=== PATIENT | male | born 1980 | race African-American/Black ===

== ENCOUNTER 2021-02-09 23:37 | Emergency (ER) | payer MEDICAID, OTHER ==
[~2021-02-09] VITALS: Ht 188 cm; Wt 159.0 kg
[2021-02-10 00:27] LABS: CHLORIDE 108 mEq/L (98-107)
[2021-02-10 01:17] LABS: BASOPHILS % 1.2 % (0.0-2.0); EOSINOPHILS % 7.8 % (0.0-5.0); HEMATOCRIT. 31.1 % (42.0-52.0); HEMOGLOBIN. 9.5 g/dL (14.0-18.0); MEAN CORPUSCULAR HEMOGLOBIN 20.6 pg (28.0-32.0); MEAN CORPUSCULAR VOLUME 67.1 fL (80.0-94.0); MEAN PLATELET VOLUME 8.3 fl (7.4-10.4); MONOCYTES % 10.2 % (2.0-8.0); NEUTROPHILS % 61.8 % (40.0-76.0); PLATELET 56 x1000/uL (130-400); RED BLOOD CELL COUNT 4.64 mill/uL (4.7-6.1); RED CELL DISTRIBUTION WIDTH 20.2 % (11.6-14.6)
[2021-02-10 01:20] LABS: PLATELET ESTIMATE DECREASED
[2021-02-10 02:29] VITALS: BP 137/76
== END 2021-02-10 02:31 ==
LOC: ER 23:37
DX: Z02.89 Encounter for other administrative examinations (principal); G40.909 Epilepsy, unspecified, not intractable, without status epilepticus; I10 Essential (primary) hypertension
CPT/HCPCS: 36415; 80053; 85025; 99284

== ENCOUNTER 2021-04-18 14:27 | Emergency (ER) | payer MEDICAID ==
[~2021-04-18] VITALS: Ht 172.7 cm; Wt 105.0 kg
[2021-04-18] MEDS ORDERED: ACETAMINOPHEN 325MG TABLET PO STA (15:18)
[2021-04-18 15:25] VITALS: BP 98/58
[2021-04-18 15:55] LABS: BASOPHILS % 0.3 % (0.0-2.0); EOSINOPHILS % 1.5 % (0.0-5.0); HEMATOCRIT. 31.3 % (42.0-52.0); HEMOGLOBIN. 9.7 g/dL (14.0-18.0); MEAN CORPUSCULAR HEMOGLOBIN 20.7 pg (28.0-32.0); MEAN PLATELET VOLUME 8.5 fl (7.4-10.4); MONOCYTES % 12.7 % (2.0-8.0); NEUTROPHILS % 70.5 % (40.0-76.0); RED BLOOD CELL COUNT 4.67 mill/uL (4.7-6.1); RED CELL DISTRIBUTION WIDTH 21.3 % (11.6-14.6)
[2021-04-18 15:59] LABS: PLATELET 43 x1000/uL (130-400)
[2021-04-18 16:01] LABS: CHLORIDE 102 mEq/L (98-107)
[2021-04-18 16:05] LABS: ETHANOL BLOOD < 10 mg/dL
[2021-04-18 16:27] LABS: PLATELET ESTIMATE MARKEDLY DECREASED
== END 2021-04-18 15:51 | disposition left against medical advice (07) ==
LOC: ER 14:27
DX: R07.89 Other chest pain (principal); E11.9 Type 2 diabetes mellitus without complications; G40.909 Epilepsy, unspecified, not intractable, without status epilepticus; F10.21 Alcohol dependence, in remission; Z86.19 Personal history of other infectious and parasitic diseases
CPT/HCPCS: 36415; 71045; 80053; 80320; 83880; 84484; 85025; 93005; 99285; G0480